=== PATIENT | male | born 1965 | race Caucasian/White ===

== ENCOUNTER 2018-05-09 20:02 | Emergency (ER) | payer OTHER ==
[~2018-05-09] VITALS: Ht 182.9 cm; Wt 138.3 kg
[~2018-05-09 20:02] MED LIST: OLME20TA13 PO
[2018-05-09 22:50] VITALS: BP 123/77
== END 2018-05-09 22:00 | disposition home or self-care (01) ==
LOC: ER 20:03
DX: L02.11 Cutaneous abscess of neck (principal); L72.3 Sebaceous cyst; I10 Essential (primary) hypertension; Z90.49 Acquired absence of other specified parts of digestive tract; Z90.89 Acquired absence of other organs; Z98.890 Other specified postprocedural states
CPT/HCPCS: 99283; A4606; Z7610